=== PATIENT | male | born 1955 | race Caucasian/White ===

== ENCOUNTER → 2018-09-13 08:13 | Outpatient (CLI) | payer MEDICARE, OTHER ==
[~2018-09-13 08:13] MED LIST: LEXAPRO5 MG PO; LISINOPRIL10 MG PO
[2018-09-25 12:28] VITALS: BMI 20.8
== END | disposition home or self-care (01) ==
LOC: D.HCCARDIO 08:13
DX: R06.09 Other forms of dyspnea (principal)

== ENCOUNTER 2018-09-25 11:51 | Outpatient (CLI) | payer MEDICARE, OTHER ==
[~2018-09-25] VITALS: Ht 172.7 cm; Wt 62.3 kg
--- NOTE | ~2018-09-25 | HEMODYNAMI ---
PATIENT:PRINCE JULIAN MEDICAL RECORD: [id number] : 51 LOCATION:D.CAT ADMISSION DATE: 09/25/18 Generatedon:09/25/201815:43 Patient name: PRINCE JULIAN Patient #: [id number] SSN: : 1955 Date of study: 09/25/2018 Page: Of Hemodynamic Procedure Report Patient Data Patient Demographics Procedure consent was obtained First Name: PRINCE Gender: Male Last Name: IESHA : 1955 Patient #: [id number] Age: 63 year(s) Race: Unknown Additional ID: [id number] Contact details Address: [address] [place] [address] [address] State: [place] City: [facility] Zip code: [address] Past Medical History Allergies Allergen Reaction Date Comments Reported Other allergy 09/25/2018 NORCO, OXYCODONE Admission Admission Data Admission Date: 09/25/2018 Admission Time: 11:51 Height (in.): 68 BSA: 1.74 (m2) Height (cm.): 172.72 BMI: 20.83 (kg/m2) Weight (lbs.): 137 Weight (kg.): 62.14 Lab Results Lab Result Date: 09/25/2018 Lab Result Time: 0:00 Biochemistry Name Units Result Min Max BUN mg/dl 14 --(--*-)-- 7 18 Creatinine mg/dl 0.9 --(-*--)-- 0.6 1.3 CBC Name Units Result Min Max Hemoglobin g/dl 15.2 --(-*--)-- 13.5 17.5 Procedure Procedure Types Cath Procedure Diagnostic Procedure C [facility] w/Coronaries Procedure Description Procedure Date Procedure Date: 09/25/2018 Procedure Start Time: 15:31 Procedure End Time: 15:40 Procedure Staff Name Function Johann Crain MD Performing Physician Lesly Cotto RT Monitor Gin Arita RT Scrub Brad Sullivan RN Nurse Kwadwo Ruano RN Casing Tester Procedure Data Cath Procedure Fluoroscopy Diagnostic fluoroscopy Total fluoroscopy Time: 2.1 time: 2.1 min min Diagnostic fluoroscopy Total fluoroscopy dose: 295 dose: 295 mGy mGy Contrast Material Contrast Material Type Amount (ml) Isovue 300 27 Entry Location Entry Primary Successful Side Size Upsize Upsize Entry Closure Eubanks ccessful Closure Location (Fr) 1 (Fr) 2 (Fr) Remarks Device Remarks Radial Right 6 Fr Mechanical tr artery Short Compression Estimated blood loss: 10 ml Diagnostic catheters Device Type Used For End Catheter Placement DIAGNOSTIC Bo 110cm Procedure 5Fr catheter ([id number]) Procedure Complications No complications Procedure Medications Medication Administration Route Dosage 0.9% NaCl I.V. 100 ml/hr Oxygen etCO2 Nasal cannula 2 l/min Heparin Flush Bag added to field 2 bags (1000units/500ml NS) Lidocaine 2% added to field 20 Radial Cocktail added to field 1 syringe (Verapomil 2mg/Nitro 400mcg/Heparin 1500units) Versed I.V. 2 mg Fentanyl I.V. 100 mcg Radial Cocktail I.A. 1 syringe (Verapomil 2mg/Nitro 400mcg/Heparin 1500units) Hemodynamics Rest BSA: 1.74 (m2) HGB: 15.2 (g/dl) O2 Consumption: Estimated: 192.53 (ml/min) O2 Co nsumption indexed: Estimated:110.65 (ml/min/m) Heart Rate: 54 (bpm) Pressure Samples Time Site Value (mmHg) Purpose Heart Use Rate(bpm) 15:33 LV 68/-5,-1 Snapshot 71 15:33 LV 95/-1,4 Snapshot 68 15:34 AO 96/53(70) Pullback 59 15:34 LV 96/0,6 Pullback 59 Gradients Valve Time Site 1 Site 2 Mean SEP/DFP Peak To Heart Use (mmHg) (sec/min) Peak Rate (mmHg) (bpm) Aortic 15:34 LV AO 6 16 0 59 96/0,6 96/53(70) Calculations Valve P-P Mean Valve Index Valve Source Name Gradient Area Flow (cm2) Aortic 0 6 0 6 Snapshots Pre Cath Intra NCS Post Cath Vital Signs Time Heart Resp SPO2 etCO2 NIBP (mmHg) Rhythm Pain Sedation Rate (ipm) (%) (mmHg) Status Level (bpm) 15:21:49 51 11 100 32.1 179/88(157) NSR 0 (11) 10(A) , No pain 15:26:14 47 13 100 7.4 128/75(96) NSR 0 (11) 10(A) , No pain 15:30:23 48 12 100 10.4 122/67(86) NSR 0 (11) 10(A) , No pain 15:34:37 55 11 98 24.6 91/51(68) NSR 0 (11) 10(A) , No pain 15:38:37 58 11 98 26.1 99/57(75) NSR 0 (11) 10(A) , No pain Medications Time Medication Route Dose Verified Delivered Reason Notes Effectiveness by by 15:20:37 0.9% NaCl I.V. 100 Brad Brad Per ml/hr Laurie Sullivan physician RN RN 15:20:49 Oxygen etCO2 2 l/min Brad Brad for low 02 Nasal Lorigan Laurie sats cannula RN RN 15:21:01 Heparin Flush added 2 bags Brad Brad used for Bag to Laurie Sullivan procedure (1000units/500ml field GAMEZ RN NS) 15:21:12 Lidocaine 2% added 20ml Brad Brad for local to vial Lorigan Laurie anesthetic field GAMEZ RN 15:21:30 Radial Cocktail added 1 Brad Brad used for (Verapomil to syringe Laurie Sullivan procedure 2mg/Nitro field GAMEZ RN 400mcg/Heparin 1500units) 15:27:03 Versed I.V. 2 mg Brad Brad for sedation Laurie Sullivan RN RN 15:27:11 Fentanyl I.V. 100 mcg Brda Brad for sedation Laurie Sullivan RN RN 15:30:51 Radial Cocktail I.A. 1 Brad Johann for (Verapomil syringe Laurie Crain MD vasodilation 2mg/Nitro RN 400mcg/Heparin 1500units) Procedure Log Time Note 14:43:20 Signed procedure consent form obtained from patient. 14:43:21 Diagnostic Cath status Elective 14:43:24 Time tracking: Regular hours (M-F 7:00 - 5:00) 14:43:27 Plan of Care:Hemodynamics will remain stable., Cardiac rhythm will remain stable., Comfort level will be maintained., Respiratory function will remain adequate., Patient/ family verbilizes understanding of procedure., Procedure tolerated without complication., Recovers from procedure without complications.. 14:43:43 H&P Date Dictated: 09/04/2018 Within 30 days and on chart., H&P Addendum completed by physician on day of procedure. (MUST COMPLETE FOR ALL OUTPATIENTS). 14:43:59 Patient allergic to Other allergyNORCO, OXYCODONE 14:44:06 Patient Height : 68 inches 14:44:09 Patient Weight : 137 lbs 14:46:54 Lab Result : BUN 14 mg/dl 14:46:54 Lab Result : Hemoglobin 15.2 g/dl 14:46:54 Lab Result : Creatinine 0.9 mg/dl 15:00:49 Kwadwo Ruano RN sent for patient. Start room use. 15:08:32 Patient received from Pre/Post Procedure Room to CCL 2 Alert and oriented. Tansferred to table in Supine position. 15:08:33 Warm blankets applied, and ammon hugger turned on for patient comfort. 15:08:33 Correct patient and procedure confirmed by team. 15:08:33 ECG and BP/O2 sat monitors applied to patient. 15:20:37 0.9% NaCl 100 ml/hr I.V. was administered by rBad Sullivan RN; Per physician; 15:20:42 Vital chart was started 15:20:47 Baseline sample Acquired. 15:20:49 Oxygen 2 l/min etCO2 Nasal cannula was administered by Brad Sullivan RN; for low 02 sats; 15:20:51 Rhythm: sinus rhythm 15:20:53 Full Disclosure recording started 15:21:01 Heparin Flush Bag (1000units/500ml NS) 2 bags added to field was administered by Brad Sullivan RN; used for procedure; 15:21:02 Pre-procedure instructions explained to patient. 15:21:04 Family in waiting room. 15:21:07 Patient NPO since Midnight. 15:21:10 Is the patient allergic to Iodine/contrast media? No. 15:21:11 Was the patient premedicated? Yes 15:21:12 Lidocaine 2% 20ml vial added to field was administered by Brad Sullivan RN; for local anesthetic; 15:21:14 Is patient on blood thinner?No 15:21:15 Patient diabetic? No. 15:21:21 Snore? No 15:21:23 Sleep apnea? No 15:21:27 Airway obstruction? Yes COPD 15:21:30 Radial Cocktail (Verapomil 2mg/Nitro 400mcg/Heparin 1500units) 1 syringe added to field was administered by Brad Sullivan RN; used for procedure; 15::32 Dentures? No ? 15:21:40 IV patent on arrival in left forearm with 0.9% NaCl at O. 15:21:45 Lab results completed and on chart. 15::49 Right Radial & Right Groin area was prepped with chlora-prep and draped in sterile fashion 15::50 Alarms reviewed by R. N. 15::50 Sharps counted by scrub and verified by R.N. 15:23:36 Physician paged 15::39 Physician arrived 15::40 --------ALL STOP TIME OUT------ 15::41 Final Timeout: patient, procedure, and site verified with staff and physician. All members of the team are in agreement. 15::43 Right groin site verified by team. 15::47 Right Radial site verified by team. 15::53 Fire Safety Assessment: A--An alcohol-based skin anteseptic being used preoperatively., C--Open oxygen or nitrous oxide is being used., D--An ESU, laser, or fiber-optic light is being used. 15:27:02 Physical assessment completed. ASA score P 2 - A patient with mild systemic disease as per Johann Crain MD. 15:27:03 Versed 2 mg I.V. was administered by Brad Sullivan RN; for sedation; 15:27:06 Sedation plan: IV Moderate Sedation Medication:Versed, Fentanyl 15:27:11 Fentanyl 100 mcg I.V. was administered by Brad Sullivan RN; for sedation; 15::49 Use device set Radial Dx or PCI 15:29:51 ACIST Syringe (03953) opened to sterile field. 15:29:52 Medline Cath Pack ([id number]) opened to sterile field. 15:29:52 Bag Decanter () opened to sterile field. 15:29:53 DIAGNOSTIC WIRE .035 260cm J wire (981147) opened to sterile field. 15:29:53 ACIST Hand Control (20195) opened to sterile field. 15:29:54 ACIST Manifold (18640) opened to sterile field. 15:29:54 Tegaderm 4 x 4 (1626W) opened to sterile field. 15:29:56 MBrace Wrist Support ([id number]) opened to sterile field. 15:29:57 NEEDLE Cook 21G 4cm Radial (K93492) opened to sterile field. 15:30:00 SHEATH 6FR Slender (80-3560) opened to sterile field. 15:30:04 Procedure started. 15:30:51 Radial Cocktail (Verapomil 2mg/Nitro 400mcg/Heparin 1500units) 1 syringe I.A. was administered by Johann Crain MD; for vasodilation; 15:31:04 Local anesthetic to right radial artery with Lidocaine 2% by Johann Crain MD.INITIAL ACCESS ONLY 15:31:12 A 6 Fr Short sheath was inserted into the Right Radial artery 15:31:28 A DIAGNOSTIC Bo 110cm 5Fr catheter (968299) was advanced over the wire and used for Procedure. 15:32:47 LV angiography performed. 15:33:21 EF : 60 % 15:33:39 Zero performed for pressure channel P1 15:34:28 LCA angiography performed. 15:37:18 RCA angiography performed. 15:38:01 Catheter removed. 15:38:08 TR BAND Standard ([id number]) opened to sterile field. 15:38:26 Sheath removed intact; hemostasis achieved with Mechanical Compression to the Right Radial artery. 15:38:30 Procedure ended.(Physican Out) 15:38:43 Fluoroscopy time 02.10 minutes. 15:38:49 Flurop Dose total: 295 15:38:49 Fluoroscopy dose: 295 mGy 15:39:09 Contrast amount:Isovue 300 27ml. 15:39:11 Sharps counted by scrub and verified by R.N. 15:39:20 TR band inflated with 12cc of air. 15:39:21 Insertion/operative site no bleeding no hematoma. 15:39:30 Post right radial artery:stable 15:39:33 Post Procedure Pulses reassessed and unchanged 15:39:38 Post-procedure physical assessment completed. ASA score P 2 - A patient with mild systemic disease as per Johann Crain MD. 15:39:41 Post procedure rhythm: sinus rhythm 15:39:45 Estimated blood loss: 10 ml 15:39:55 Procedure and supply charges have been captured, reviewed, submitted and are correct. 15:40:21 Procedure Complication : No complications 15:40:34 Vital chart was stopped 15:40:35 See physician's report for complete and final results. 15:40:39 Report given to Pre/Post Procedure Room. 15:40:41 Patient transfered to Pre/Post Procedure Room with Stretcher. 15:40:43 Procedure ended. 15:40:43 Full Disclosure recording stopped 15:40:47 End room use (Document Last) Device Usage Item Name Manufacture Quantity Catalog Hospital Part Current Minimal Lot# / Number Charge Number Stock Stock Serial# Code ACIST Acist 1 24893 181530 618989 007978 20 Syringe Medical (42487) Systems Inc Medline Medline 1 [id number] 324201 74538 257141 5 Cath Pack ([id number]) Bag Microtek 1 2001S 690092 40382 472901 5 Decanter Medical Inc. (2001S) DIAGNOSTIC St Piotr 1 545631 634955 262068 220451 30 WIRE .035 260cm J wire (633685) ACIST Hand Acist 1 55219 026667 090604 179229 5 Control Medical (58738) Systems Inc ACIST Acist 1 44791 852705 537032 087169 5 Manifold Medical (60996) Systems Inc Tegaderm 4 3M 1 1626W 723911 413357 401617 5 x 4 (1626W) MBrace Advanced 1 140-0250-00 346499 86954 435104 5 Wrist Vascular Support Dynamics ([id number]) NEEDLE Airec Medical 1 I02301 374467 601275 443111 5 21G 4cm Radial (K54624) SHEATH 6FR Terumo 1 [id number] 793245 877058 816609 5 Slender (80-1060) DIAGNOSTIC Terumo 1 40-2235 928908 141553 955827 5 Bo 110cm 5Fr catheter (571822) TR BAND Terumo 1 [id number] 881717 584675 219118 40 Standard ([id number]) Signature Audit Campbell Stage Time Signature Unsigned Intra-Procedure 09/25/2018 Lesly Cotto 3:42:55 PM RT(R) Signatures Monitor : Lesly Cotto Signature : RT Date : Time : [facility] [address] [place] [address]
[2018-09-25] MEDS ORDERED: LISINOPRIL10 MG PO (12:12)
[2018-09-25] MEDS ORDERED: LEXAPRO5 MG PO (12:12)
[2018-09-25 12:28] VITALS: BP 180/74; Ht 172.7 cm; Wt 62.3 kg
[2018-09-25 12:52] LABS: CALC OSMOLALITY 271 mosm/kg (275-300); CALCIUM 8.2 mg/dL (8.5-10.1); CARBON DIOXIDE 23.9 mmol/L (21.0-32.0); CHLORIDE - SERUM 101 mmol/L (98-107); CREATININE - SERUM 0.9 mg/dL (0.6-1.3); GLUCOSE 81 mg/dL (74-106); POTASSIUM - SERUM 3.8 mmol/L (3.5-5.1); SODIUM 136 mmol/L (136-145); UREA NITROGEN 14 mg/dL (7-18); eGFR NON AFRICAN AMERICAN 90 mL/min (90-120)
[2018-09-25 13:30] LABS: BASOPHILS 0.3 % (0-2); EOSINOPHILS 2.5 % (0-7); HEMATOCRIT 43.2 % (42.0-54.0); HEMOGLOBIN 15.2 g/dL (13.5-17.5); IMMATURE GRANULOCYTES 0.3 % (0-5); LYMPHOCYTES 35.9 % (15-50); MCH 31.7 pg (26.0-34.0); MCHC 35.2 g/dL (31.0-37.0); MEAN PLATELET VOLUME 9.9 fL (7.4-10.4); PLATELET COUNT 219 10x3/uL (130-400); RDW 12.6 % (11.5-14.5); WBC 7.6 10x3/uL (4.8-10.8)
--- NOTE | 2018-09-25 16:01 | NUR ---
PT RECEIVED VIA STRETCHER FROM DIESEL SERVICE APPRENTICE FOR RECOVERY. PT SLEEPING, AROUSES TO VERBAL STIMULI. HR SINUS LETICIA RATE 49, BP 104/62, O2 SAT 95 ON 2L/NC. TR BAND TO R WRIST IN PLACE, DRESSING CDI NO BLEEDING OR SWELLING NOTED. CAP REFILL BRISK. CALL LIGHT IN REACH
--- NOTE | 2018-09-25 16:15 | NUR ---
PT SLEEPING W EYES CLOSED, TR BAND IN PLACE NO BLEEDING OR HEMATOMA NOTED. CAP REFILL BRISK. HR SINUS LETICIA RATE 456, BP 107/61. CALL LIGHT IN REACH
--- NOTE | 2018-09-25 16:45 | NUR ---
PT RESTING COMFORTABLY, DENIES PAIN OR DISCOMFORT. TR BAND AND IMMOBILIZER IN PLACE, NO BLEEDING OR HEMATOMA NOTED. DRESSING REMAINS CDI. CALL LIGHT IN REACH.
--- NOTE | 2018-09-25 17:04 | NUR ---
4CC AIR REMOVED FROM TR BAND, NO BLEEDING OR SWELLING NOTED. PT STILL DROWSY BUT RESPONDS TO VERBAL STIMULI. O2 REMOVED. PT DENIES PAIN OR NEEDS. OFFERED SANDWICH OR DRINK, REFUSES AT THIS TIME. CALL LIGHT IN REACH.
--- NOTE | 2018-09-25 17:35 | NUR ---
PT WAKING UP MORE, WATER GIVEN PER REQUEST. DENIES PAIN OR DISCOMFORT, VSS. TR BAND AND IMMOBILIZER IN PLACE NO BLEEDING OR SWELLING NOTED. 3 ADD'L CC AIR REMOVED W/O BLEEDING OR SWELLING. REFUSES ANY FOOD AT THIS TIME. CALL LIGHT IN REACH
--- NOTE | 2018-09-25 17:50 | NUR ---
IV REMOVED W CATH INTACT, MONITORS REMOVED. PT MORE AWAKE, CALLING FOR RIDE HOME.
--- NOTE | 2018-09-25 18:10 | NUR ---
DISCHARGE INSTRUCTIONS REVIEWED W PT, VERBALIZED UNDERSTANDING. PT UP TO DRESS W ASSIST OF .
--- NOTE | 2018-09-25 18:15 | NUR ---
REMAINING AIR REMOVED FROM TR BAND, NO BLEEDING OR SWELLING NOTED. 2X2 AND TEGADERM DRESSING APPLIED. IMMOBILIZER ON, INSTRUCTED PT TO KEEP ON TILL AM REMINDER TO NOT BEND OR PUT WEIGHT ON WRIST. TO BR THEN DISCHARGED TO PRIVATE VEHICLE VIA WC.
== END 2018-09-25 18:15 | disposition home or self-care (01) ==
LOC: D.CATH 11:51
PROVIDERS: Internal Medicine Cardiovascular Disease
DX: I25.119 Atherosclerotic heart disease of native coronary artery with unspecified angina pectoris (principal)

== ENCOUNTER 2018-10-02 16:17 | Inpatient (IN) | payer MEDICARE, OTHER ==
[~2018-10-02] VITALS: Ht 172.7 cm; Wt 63.1 kg
[2018-10-03 08:45] LABS: BASOPHILS 0.4 % (0-2); EOSINOPHILS 1.6 % (0-7); HEMATOCRIT 46.1 % (42.0-54.0); HEMOGLOBIN 16.1 g/dL (13.5-17.5); IMMATURE GRANULOCYTES 0.4 % (0-5); LYMPHOCYTES 30.5 % (15-50); MCH 31.8 pg (26.0-34.0); MCHC 34.9 g/dL (31.0-37.0); MCV 90.9 fL (80.0-100.0); MEAN PLATELET VOLUME 9.7 fL (7.4-10.4); MONOCYTES 11.2 % (2-11); NEUTROPHILS 55.9 % (40-80); PLATELET COUNT 219 10x3/uL (130-400); RBC 5.07 10x6/uL (4.20-6.10)
[2018-10-03 08:53] LABS: INR 0.97 (0.85-1.17); PROTIME 12.4 SECONDS (11.6-15.0)
[2018-10-03 08:54] LABS: APTT 27.6 SECONDS (22.8-39.4)
[2018-10-03 08:57] LABS: APPEARANCE CLEAR (CLEAR); BILIRUBIN NEGATIVE (NEGATIVE); COLOR YELLOW (YELLOW); GLUCOSE NEGATIVE (NEGATIVE); KETONE NEGATIVE (NEGATIVE); NITRITE NEGATIVE (NEGATIVE); PROTEIN NEGATIVE (NEGATIVE); UROBILINOGEN NORMAL (NORMAL)
[2018-10-03 09:00] LABS: BACTERIA NONE SEEN /hpf (NONE SEEN); EPITHELIAL CELLS OCC /hpf (0-5); MUCUS <1+ /lpf (NONE SEEN); RED CELLS - URINE OCC /hpf (0-5); WHITE CELLS - URINE OCC /hpf (0-5)
[2018-10-03 09:08] LABS: ALBUMIN 3.4 g/dL (3.4-5.0); ALKALINE PHOSPHATASE 161 U/L (46-116); ALT (SGPT) 21 U/L (10-68); CALC OSMOLALITY 274 mosm/kg (275-300); CALCIUM 8.8 mg/dL (8.5-10.1); CARBON DIOXIDE 27.3 mmol/L (21.0-32.0); CHLORIDE - SERUM 102 mmol/L (98-107); CHOLESTEROL, TOTAL 172 mg/dL (0-200); CREATININE - SERUM 0.8 mg/dL (0.6-1.3); GLUCOSE 95 mg/dL (74-106); PHOSPHOROUS 2.9 mg/dL (2.5-4.9); POTASSIUM - SERUM 4.4 mmol/L (3.5-5.1); SODIUM 137 mmol/L (136-145); T4 THYROXIN - FREE 1.03 ng/dL (0.76-1.46); THYROID STIMULATING HORMONE 0.91 uIU/mL (0.36-3.74); UREA NITROGEN 14 mg/dL (7-18); URIC ACID 3.1 mg/dL (2.6-7.2); eGFR NON AFRICAN AMERICAN > 90 mL/min (90-120)
[2018-10-07] VITALS (38 sets, daily range): BP systolic 93–146; BP diastolic 50–79; BMI 21.1; BMI 22.6
--- NOTE | 2018-10-07 13:10 | NUR ---
PT ARRIVED IN THE UNIT WITH THE OR TEAM. PT HOOKED TO ICU MONITORS. PT VERY SEDATED AND ON THE VENT. 8.5 ETT NOTED 22 AT THE LIP. SEE RT NOTES FOR VENT SETTINGS AND CHANGES. RIGHT IJ CVL NOTED. DRESSING C/D/I. SEE IV FLUIDS IN FLOW SHEET. MIDSTERNAL DRESSING C/D/I. SUBSTERNAL DRESSING C/D/I. 3 CT'S NOTED AND A LEFT DARRELL DRAIN. 2 CT'S Y'D INTO ONE CT IS LABLED P AND CT A IS A SINGLE CT. BOTH CT'S CONNECTED TO 20 CM OF SUCTION. NO AIR LEAK NOTED. THE LEFT DARRELL DRAIN IS COMPRESSED. DRESSING C/D/I ALL DRESSING C/D/I. TPM WIRES NOTED CONNECTED TO A TPM. AAA RATE 80 AMA 10 SENSETIVITY 0.5. PT ATRIALLY PACING. VSS AT THIS TIME. RIGHT RADIAL CURRY NOTED WITH THE WRIST PROTECTOR ON. CAP REFILL <3 SECONDS. IV NOTED TO LEFT AC. FC NOTED WITH CLEAR, YELLOW URINE. RLE HARVEST SITE NOTED. DRESSING/KOBAN NOTED FROM ANKLE TO THIGH C/D/I. BILATEARL DP AND PT PULSES PALPABLE. WILL TITRATE CHARLENE FOR BP PER ORDERS.
--- NOTE | 2018-10-07 13:20 | NUR ---
CHARLENE TURNED OFF DUE TO BP RISING.
--- NOTE | 2018-10-07 13:40 | NUR ---
DR PRINGLE PAGED REGARDING HYPERTENSION. HE STATED TO TURN OFF PACEMAKER AND START NITRO IF NEEDED. PACEMAKER TURNED OFF. PT IN NSR RATE 64. BP 115/64. WILL MONITOR.
--- NOTE | 2018-10-07 14:00 | NUR ---
PT BECOMING HYPOTENSIVE AND BRADYCARDIC. PACEMAKER TURNED BACK ON AT THE SAME SETTING. PT BP STABLELIZED RATE AT 80. DR PRINGLE NOTIFIED. NO N.O AT THIS TIME.
--- NOTE | 2018-10-07 14:30 | NUR ---
DR DOE VOGELD AND MADE AWARE OF CONSULT.
--- NOTE | 2018-10-07 15:15 | NUR ---
DR AZAR AT THE PTS BEDSIDE.
--- NOTE | 2018-10-07 15:26 | NUR ---
PT AWAKE BUT REMAINS DROWSEY. PT ABLE TO FOLLOW COMMANDS. VSS AT THIS TIME. CONT TO TITRATE CHARLENE FOR BP EFFECT. WILL CONT POC.
--- NOTE | 2018-10-07 16:50 | NUR ---
RT AT THE PT'S BEDSIDE DOING NIFF AND VC TEST. SEE RT NOTES. PT HAS BEEN ON SPONT. MODE ON THE VENT DOING WELL. PT AWAKE AND ALERT AND FOLLOWING COMMANDS. ABLE TO DO SIMPLE MATH. RT COLLECTING ABG'S WILL NOTIFY DR PRINGLE OF THE RESULTS.
--- NOTE | 2018-10-07 16:59 | NUR ---
DR PRINGLE NOTIFIED ABOUT THE ABG RESULTS AND NIFF AND VC. UPDATED HIM ON PTS OUTPUTS AND IV GTTS. DR PRINGLE OK TO EXTUBATE.
--- NOTE | 2018-10-07 17:05 | NUR ---
RT EXTUBATED THE PT PER DR PRINGLE VERBAL ORDERS. O2 PLACED ON 4L VIA NC. PT NOTED TO HAVE AN EXTREAMLY WEAK COUGH. A PILLOW WAS PROVIDED FOR THE PT. PT INSTRUCTED TO SPLINT HIS CHEST AND DOMOSTRATED HOW. COUGH REMAINS WEAK. PT GIVEN AN IS AND INSTRUCTED TO USE. PT ONLY ABLE TO PULL ABOUT 500 ON HIS IS. PT INSTRUCTED TO USE 10X'S/H. VSS AT THIS TIME. CALL LIGHT IN REACH. WILL CONT POC.
--- NOTE | 2018-10-07 18:49 | NUR ---
DR PRINGLE CALLED AND UPDATED HIM ON THE PTS CONDITION INCLUDING THE PACEMAKER, VITAL SIGNS AND IV MEDICATION. NO NEW ORDERS AT THIS TIME.
--- NOTE | 2018-10-07 19:20 | NUR ---
REC'D TO CARE, SUPERVISOR OVENS PER FLOWSHEET. PT AWAKE, ORIENTED, VSS. S/P CABG. IVF INFUSING TO R IJ CVL, DSG C/D/I - SEE FLOWSHEET. INCISIONS/DRAINS PER FLOWSHEET. CRITICORE MITCHELL PATENT AND DRAINING CLEAR, YELLOW URINE. R RADIAL A-LINE, FLUSHED AND ZEROED WITH GOOD WAVE FORM NOTED - WILL TITRATE CHARLENE GTT PER MD ORDERS. CM - PACED AT 80, MEDIASTINAL TPM WITH WIRES SECURED. PT DENIES NEEDS. ALARMS ON.
--- NOTE | 2018-10-07 20:33 | NUR ---
DR. PRINGLE UPDATED ON PT STATUS, CHARLENE GTT UNCHANGED. CM - PACED AT 80. NEW ORDERS REC'D.
--- NOTE | 2018-10-07 21:59 | NUR ---
PT UP IN BED, I.S. 750-1000. REPOSITIONED WITH PILLOWS, HEELS BRIDGED. C/O PAIN AFTER - ADMIN PRN MORPHINE - SEE EMAR.
--- NOTE | 2018-10-07 22:16 | NUR ---
REPORTS ADEQUATE PAIN RELIEF. ALARMS ON AND C/L IN REACH.
--- NOTE | 2018-10-07 23:04 | NUR ---
REASSESSMENT PER FLOWSHEET. NO ACUTE CHANGES. PT PULLING 750-1000 ON I.S. REPORTS INCISIONAL PAIN "REALLY JUST WHEN IM COUGHING". VSS, WEANING CHARLENE GTT OFF. TAKING WATER WITH NO C/O NAUSEA. VSS. C/L IN REACH.
[2018-10-08] VITALS (45 sets, daily range): BP systolic 94–130; BP diastolic 48–68; BMI 22.4
--- NOTE | 2018-10-08 01:05 | NUR ---
REPOSITIONED UP IN BED, COOPERATIVE, GIVEN FRESH WATER. I.S. 750, SPLINTING CHEST WITH PILLOW.
--- NOTE | 2018-10-08 03:00 | NUR ---
REASSESSMENT PER FLOWSHEET, NO ACUTE CHANGES. GOOD EFFORT ON I.S. COOPERATIVE. VSS.
--- NOTE | 2018-10-08 03:18 | NUR ---
DANGLED AT BS X 10MIN, GOOD COUGH, THEN BACK TO BED. ADMIN PRN MORPHINE PER REQUEST. VSS. WILL CONT CLOSE MONITORING.
[2018-10-08 06:01] LABS: HEMOGLOBIN 12.1 g/dL (13.5-17.5); MCH 31.7 pg (26.0-34.0); MCHC 34.6 g/dL (31.0-37.0); MCV 91.6 fL (80.0-100.0); MEAN PLATELET VOLUME 9.5 fL (7.4-10.4); RBC 3.82 10x6/uL (4.20-6.10); RDW 13.2 % (11.5-14.5); WBC 13.7 10x3/uL (4.8-10.8)
[2018-10-08 06:20] LABS: ALBUMIN 2.5 g/dL (3.4-5.0); ANION GAP 13.6 mmol/L (8-16); BILIRUBIN - TOTAL 0.61 mg/dL (0.2-1.3); CARBON DIOXIDE 23.7 mmol/L (21.0-32.0); CREATININE - SERUM 1.1 mg/dL (0.6-1.3); POTASSIUM - SERUM 4.3 mmol/L (3.5-5.1); PROTEIN - SERUM 4.7 g/dL (6.4-8.2)
--- NOTE | 2018-10-08 06:22 | NUR ---
UP IN CHAIR WITH MINIMAL ASSIST REQUIRED. ALARMS ON AND C/L IN REACH.
--- NOTE | 2018-10-08 07:00 | NUR ---
REPORT RECIEVED FROM THE OFF GOING RN. SEE ASSESSMENT IN THE PTS FLOW SHEET. PT SITTING UPWRIGHT IN THE BEDSIDE CHAIR. NO S/SX OF DISTRESS/DISCOMFORT NOTED. BREATHING SHALLOW BUT UNLABORED. ATRIALLY PACING AT 79-80 ON THE MONITOR. RIGHT IJ CVL NOTED C/D/I. PT ON 2L VIA NC. MIDSTERNAL DRESSING C/D/I. SUBSTERNAL DRESSING C/D/I WITH CTX3 AND A LEFT DARRELL COMPRESSED. [address] A AND CT IS A SINGLE TUBE BOTH CONNECTED TO 20 CM OF SUCTION. SEROUSANGENIOUS DRAINAGE NOTED. TPM WIRES CONNECTED TO THE PACEMAKER. AAI 7AMA SENSITIVITY 0.5. FC NOTED WITH CLEAR, YELLOW URINE. RLE DRESSIN/KOBAN FROM ANKLE TO THIGH NOTED. DENIES PAIN AT THIS TIME. PT INSTRUCTED TO USE HIS IS 10X'S/H. PT PULLS ABOUT 500-750 AND WILL OCCASIONALLY HIT 1000. INSTRUCTED TO SPLINT WITH HIS PILLOW WHENEVER COUGHING. CALL LIGHT IN REACH. WILL CONT POC.
--- NOTE | 2018-10-08 08:30 | NUR ---
CLEAR LIQUID DIET PROVIDED FOR THE PT. NO DYSHAGIA NOTED. NO COMPLAINTS AT THIS TIME.
--- NOTE | 2018-10-08 09:26 | NUR ---
DR PRINGLE AT THE PTS BEDSIDE. TPM TURNED OFF. NSR AT 72. BP STABLE. CT'S LABLED A AND P PULLED OUT PER DR PRINGLE. LEFT DARRELL DRAIN REMAINING. TPM WIRES COILED AND SUBSTERNAL DRESSING CHANGED PER ORDERS. PT TOLERATED WELL.
--- NOTE | 2018-10-08 10:30 | NUR ---
LEFT AC IV DC'D WITH THE CATHETER TIP INTACT. DRESSING APPLIED.
--- NOTE | 2018-10-08 10:57 | NUR ---
10 ML OF SALINE REMOVED FROM FC. IT WAS DC PER ALONSO PRINGLE. CURRY DC PER DR PRINGLE. CATHETER TIP INTACT. PT RECEIVED A FULL BED BATH. GOWN CHANGED. PT ASSISTED OOB AND INTO HIS BEDSIDE CHAIR. PT TOELRATED WELL. PO FLUIDS AT THE PTS BEDSIDE. PT USING IS PULLING ABOUT 500-750. CALL LIGTH IN REACH. WILL CONT POC.
--- NOTE | 2018-10-08 12:55 | MORECARE ---
CASE MANAGEMENT DISCHARGE SUMMARY PATIENT: PRINCE JULIAN MELVI UNIT: [id number] ADM DATE: 10/07/18 AGE: 63 : 53 SEX: M ROOM/BED: [facility] AUTHOR: LEANDRO SAMS PHYSICIAN: REFERRING PHYSICIAN: JODEE PRINGLE MD DATE OF SERVICE: 10/08/18 Discharge Plan Patient Name: PRINCE JULIAN [facility] [facility] 1955 Planned Disposition: Home Anticipated Discharge Date: Discharge Date: Expected LOS: Initial Reviewer: [email or web address] Initial Review Date: 10/07/2018 Generated: 10/08/18 1:55 pm Patient Name: PRINCE JULIAN Page [phone] at 1255 All edits/amendments must be made on the electronic document DICTATION DATE: 10/08/18 1254 ENGINE WATCHMAN: GURVINDER 10/08/18 1254 RPT#: [id number] DC DATE: STATUS: ADM IN [facility] [address] [place] [address] END OF REPORT
--- NOTE | 2018-10-08 13:03 | MORECARE ---
CASE MANAGEMENT DISCHARGE SUMMARY PATIENT: PRINCE JULIAN UNIT: [id number] ADM DATE: 10/07/18 AGE: 63 : 53 SEX: M ROOM/BED: [facility] AUTHOR: LATRELL,DOC PHYSICIAN: REFERRING PHYSICIAN: JODEE PRINGLE MD DATE OF SERVICE: 10/08/18 Discharge Plan Patient Name: PRINCE JULIAN Facility: [facility]:[place] : 1955 Planned Disposition: Home Anticipated Discharge Date: Discharge Date: Expected LOS: Initial Reviewer: [email or web address] Initial Review Date: 10/07/2018 Generated: 10/08/18 2:03 pm Comments DCP- Discharge Planning Updated by [email or web address]: Gely Marley on 10/08/18 12:[address] Patient Name: PRINCE JULIAN Admission Status: Elective Accout number: [id number] Admission Date: 10-07-2018 : 1955 Admission Diagnosis: Attending: JODEE PRINGLE Current LOS: 1 Anticipated DC Date: Planned Disposition: Home Primary Insurance: MEDICARE A & B Discharge Planning Comments: CM met with patient and spouse at bedside after obtaining verbal consent. Patient states he plans on returning home after discharge with his . Patient states he will have family transport him home via private vehicle. Patient denies any discharge needs at this time. CM will continue to follow and assist as needed for discharge planning / needs. Client Success Director: Gely Marley DCPIA - Discharge Planning Initial Assessment Updated by [id number]: Gely Marley on 10/08/18 12:58 pm * Is the patient Alert and Oriented? Yes * How many steps to enter\exit or inside your home? * PCP [facility] * [place] [facility] [place] Preadmission Environment Home with Family * ADLs Independent * Equipment None * List name and contact numbers for known caregivers / representatives who currently or will assist patient after discharge: SHAW JULIAN - - [phone] * Verbal permission to speak to the caregivers and representatives has been obtained from the patient. Yes * Community resources currently utilized None * Additional services required to return to the preadmission environment? No * Can the patient safely return to the preadmission environment? Yes * Has this patient been hospitalized within the prior 30 days at any hospital? No Last DP export: 10/08/18 11:55 am Patient Name: PRINCE JULIAN Page [phone] at 1303 All edits/amendments must be made on the electronic document DICTATION DATE: 10/08/18 1303 HAND ROLLER ENGRAVER: GURVINDER 10/08/18 1303 RPT#: [id number] DC DATE: STATUS: ADM IN [facility] [address] [place] [address] END OF REPORT
--- NOTE | 2018-10-08 15:42 | NUR ---
PT DENIES THE URGE TO URINATE. I ASKED IF THE PT COULD TRY ANYWAYS AND HE STATED THAT HE WILL. HE ATTEMPTED TO URINATE IN THE URINAL WITH NO SUCCESS BUT THE PT DENIES THE URGE TO VOID. ENCOURAGE PO INTAKE.
--- NOTE | 2018-10-08 16:39 | NUR ---
DINNER TRAY PROVIDED FOR THE PT. NO NEEDS AT THIS TIME. DENIES PAIN. CALL LIGHT IN REACH. WILL CONT POC.
--- NOTE | 2018-10-08 19:23 | NUR ---
REC'D TO CARE, DIRECTOR OF SOCIAL MEDIA MARKETING PER FLOWSHEET. PT UP IN CHAIR. VSS. PT HAS VOIDED 100ML CLEAR, NARA URNIE IN URINAL. INCISION/SKIN ASSESSMENT PER FLOWSHEET. CM - NSR. R IJ CVL, DSG INTACT, SL'D. PT DENIES NEEDS AT THIS TIME. C/L IN REACH.
--- NOTE | 2018-10-08 20:03 | NUR ---
PT BACK TO BED WITH MINIMAL ASSIST. C/O BREAKTHROUGH PAIN - PRN DILAUDID GIVEN - SEE EMAR
--- NOTE | 2018-10-08 21:19 | NUR ---
ADMIN PO MEDS PER MD ORDERS. AT BS. UPDATE GIVEN AND QUESTIONS ANSWERED.
--- NOTE | 2018-10-08 23:12 | NUR ---
REASSESSMENT PER FLOWSHEET, NO ACUTE CHANGES. USES C/L FOR NEEDS. GIVEN BROTH PER REQUEST. ALARMS ON.
[2018-10-09] VITALS (25 sets, daily range): BP systolic 95–132; BP diastolic 48–69
--- NOTE | 2018-10-09 01:05 | NUR ---
RT AT BS FOR RESP TX. I.S. 750-1000. PT USES ROMA FOR PC. C/L IN REACH.
--- NOTE | 2018-10-09 01:05 | NUR ---
PT RESTING WITH EYES CLOSED, VSS. ALARMS ON AND C/L IN REACH.
--- NOTE | 2018-10-09 03:00 | NUR ---
REASSESSMENT PER FLOWSHEET, NO ACUTE CHANGES. STERILE DSG CHANGE TO R IJ CVL PER PROTOCOL, NO REDNESS OR SWELLING AT SITE. VSS. PT DENIES NEEDS. C/L IN REACH. ALARMS ON. FRESH WATER AT BS.
[2018-10-09 06:20] LABS: HEMATOCRIT 32.7 % (42.0-54.0); MCH 30.9 pg (26.0-34.0); MCHC 33.6 g/dL (31.0-37.0); MCV 91.9 fL (80.0-100.0); MEAN PLATELET VOLUME 10.1 fL (7.4-10.4); RBC 3.56 10x6/uL (4.20-6.10); RDW 13.3 % (11.5-14.5); WBC 11.8 10x3/uL (4.8-10.8)
[2018-10-09 06:35] LABS: ALBUMIN 2.2 g/dL (3.4-5.0); ALKALINE PHOSPHATASE 95 U/L (46-116); CALC OSMOLALITY 273 mosm/kg (275-300); CALCIUM 7.4 mg/dL (8.5-10.1); CARBON DIOXIDE 25.9 mmol/L (21.0-32.0); CHLORIDE - SERUM 103 mmol/L (98-107); GLUCOSE 112 mg/dL (74-106); PROTEIN - SERUM 4.8 g/dL (6.4-8.2); SODIUM 136 mmol/L (136-145); UREA NITROGEN 14 mg/dL (7-18)
[2018-10-09 06:38] LABS: ALT (SGPT) 22 U/L (10-68); CREATININE - SERUM 0.8 mg/dL (0.6-1.3); eGFR NON AFRICAN AMERICAN > 90 mL/min (90-120)
--- NOTE | 2018-10-09 07:00 | NUR ---
REPORT RECEVIED FROM THE OFF GOING RN. SEE ASSESSMENT IN THE PTS FLOW SHEET. PT ASSISTED OOB AND INTO HIS BEDSIDE CHAIR VIA THE OVER NIGHT NURSE. NORMAL STEADY GAIT NOTED. PT TOLERATED WELL. NSR ON THE MONITOR. VSS. PT ON 2L VIA NC. RIGHT IJ CVL NOTED. DRESSING C/D/I. MIDSTERNAL DRESSING C/D/I. SUBSTERNAL DRESSING C/D/I. LEFT DARRELL DRAIN NOTED. COMPRESSED WITH SCANT AMOUNT OF SEROUSANGENIOUS DRAINAGE NOTED. RLE HARVEST SITE NOTED KAYY. WELL APPROXIMATED. DENIES PAIN. CALL LIGHT IN REACH. WILL CONT POC.
--- NOTE | 2018-10-09 07:30 | NUR ---
PT INSTRUCTED TO USE HIS IS 10X'S/H. PT PULLS ABOUT 1732-2855. INSTRUCTED TO SPLINT CHEST WITH HER PILLOW. PRODUCTIVE COUGH NOTED. CLEAR THICK SPUTUM NOTED. WILL CONT POC.
--- NOTE | 2018-10-09 08:30 | NUR ---
MEAL TRAY PROVIDED FOR THE PT. NO N/V OR DYSPAGIA NOTED. PT TOLEARTED WELL. WILL CONT POC.
--- NOTE | 2018-10-09 08:51 | NUR ---
HYPOACTIVE X4. PT DENIES FLATULACE. PRN REGLAN GIVEN. SEE MAR.
--- NOTE | 2018-10-09 10:52 | NUR ---
SUBSTERNAL DRESSING CHANGED. TPM WIRES X2 NOTED. LEFT DARRELL DRAIN SITE SHOWS NO S/SX OF INFECTION NOTED. OLD CT SITES X3 NOTED. NO S/SX OF INFECTION. SCANT AMOUNT OF SEROUS DRAINAGE NOTED. BETADINE AND BETADINE OINTMENT APPLIED PER ORDERS. DRESSING APPLIED C/D/I. WILL CONT POC.
--- NOTE | 2018-10-09 11:07 | NUR ---
PHYSCIAL THERAPY WITH THE PT. PT AMBULATED ABOUT 100 FEET. C/O SLIGHT SOB. PT BACK IN HIS BEDSIDE CHAIR. VSS WILL CONT POC.
--- NOTE | 2018-10-09 11:22 | OP ---
PATIENT NAME: PRINCE JULIAN MEDICAL RECORD: [id number] :51 LOCATION:D.CVI D.CV04 ADMISSION DATE:10/07/18 SURGEON: CAIO PRINGLE MD DATE OF OPERATION: 10/07/2018 SURGEON: Caio Pringle MD MANAGEMENT TECHNICIAN: AKUA Hamm MD and Zander Baldwin. OPERATION PERFORMED: 1. Coronary artery bypass graft times 4 (left internal mammary artery to LAD, reverse saphenous vein graft from aorta to obtuse marginal, aorta to posterior descending artery and from side of that vein graft to the posterolateral branch of the right coronary artery distally). 2. Endoscopic saphenous vein harvest. PREOPERATIVE DIAGNOSES: Coronary artery disease with unstable angina. POSTOPERATIVE DIAGNOSES: Coronary artery disease with unstable angina. ANESTHESIA: General endotracheal anesthesia. SPECIMENS: None. ESTIMATED BLOOD LOSS: Cell Saver. CONDITION: Stable. DISPOSITION: CV ICU. OPERATIVE FINDINGS: 1. Transesophageal echocardiography confirmed good contractility. 2. Good quality greater saphenous vein harvested from the right thigh endoscopically a little bit smaller below the knee and this portion was used for the second posterolateral graft as it was a good match for the smaller vessel and rather than anastomosed the small vein directly to the aorta it was anastomosed to the proximal portion of the graft to the PDA. 3. Good quality left internal mammary artery. The LAD had severe disease at the diagonal site, but was a 1.5-mm vessel with good flow after anastomosis. 4. Obtuse marginal 2.0-mm with severe disease. 5. The posterior descending artery had mid vessel stenosis and then bifurcated into 2 small vessels that were not amenable for good bypass. Therefore, the anastomosis was made prior to the mid vessel, which was a 2.0-mm vessel. 6. Posterolateral branch #2 was larger of the two posterolateral, 1.5 mm. 7. 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 OPERATIVE INDICATION: Coronary artery disease and unstable angina. DESCRIPTION OF PROCEDURE: The patient was brought to the operating suite. General anesthesia was obtained, the patient was prepped and draped. Greater saphenous vein harvested in the right lower extremity utilizing endoscopic technique. Side branches divided with electrocautery. Vessels were ligated proximally and distally and removed. The side branches were tied or clipped. This portion of the case was performed with assistance surgeon, Dr. Hamm. He OPERATIVE REPORT [id number] PRINCE JULIAN harvested the vein, oversewed the side branches or tied them and ensured hemostasis. The use of an human resources office assistant surgeon saved approximately 30-45 minutes for the case. Median sternotomy incision was made. Subcutaneous tissue was divided with electrocautery. Sternum was divided with a saw. Left hemisternum was elevated. The left pleural cavity was entered. The left lung was significantly hyperexpanded. Left internal mammary artery and vein was taken down as a pedicle graft. Sternal retractor was placed. Pericardium was opened. Heparin was given. Aorta was cannulated. Dual stage venous cannula was inserted. The internal mammary was clipped distally and made ready for anastomosis. Activated clotting time was appropriately elevated. The patient was placed on cardiopulmonary bypass. Sites for distal anastomoses were selected. Antegrade cardioplegia needle was inserted. Crossclamp was placed. The patient's temperature was allowed to drift downwardly. Cardioplegia was given antegrade. This was repeated at 15-minute intervals including down the completed vein grafts. Distal anastomoses was performed in standard technique. Proximal anastomosis with single cross-clamp technique. The [id number] anastomosis was then performed after the cross-clamp was removed. The patient was fully rewarmed, weaned from cardiopulmonary bypass and was stable. The patient was paced atrial ventricularly with temporary wires. Drain was placed in the mediastinum. The patient was decannulated and cannula sites were oversewn. Protamine was given. Hemostasis was ensured. Pericardial fat was loosely reapproximated. Left chest was evacuated and irrigated. The internal mammary harvest site was hemostatic. Sternum was closed with wires. Fascia was closed. Subcutaneous tissue was closed. Skin was closed. Dermabond was placed. The needle and sponge counts were reported as correct and the patient was taken to ICU in stable condition. TRANSINT:[id number] Voice Confirmation ID: [id number] DOCUMENT ID: [id number] CAIO PRINGLE MD at 1122 CC: VLAD MOHR M.D. [id number] DICTATION DATE: 10/08/18901 SPECIAL SHOPPER: 10/08/18 1123 ADM IN [place] [id number] [place] [address]
--- NOTE | 2018-10-09 16:30 | NUR ---
DR PRINGLE'S NURSES, JOSE MERCADO RN, CALLED AND STATED TO PULL OUT THE PTS DARRELL DRAIN BUT TO LEAVE IN THE TPM WIRES. LEFT DARRELL DRAIN REMOVED PER DR PRINGLE AND SUBSTERNAL DRESSING CHANGED. NO S/SX OF INFECTION NOTED. CALL LIGHT IN REACH. WILL CONT POC.
--- NOTE | 2018-10-09 17:51 | NUR ---
DINNER TRAY PROVIDED FOR THE PT. VSS. DRESSINGS C/D/I. DENIES PAIN. CALL LIGHT IN REACH. WILL CONT POC.
--- NOTE | 2018-10-09 19:25 | NUR ---
Received patient resting in bed with eyes open, assessment completed per flowsheet. Patient AO x4, answers appropriately/follows instructions. S1/S2 noted NSR on telemetry with HR 74, rythmic and regular. Breathing is even/unlabored on 2L via NC with O2 sat 94%, lung sounds clear bilateral upper and mid with diminished lower. Midsternal incision dressing CDI, Substernal TPM wires coiled with dressing CDI. Abdomen is round/soft with bowel sounds active x4, non-tender. All pulses palpable wtih cap refill < 3 sec, skin warm/dry. Repositioned for comfort, denies pain or other needs at this time. See flowsheet for details, all VSS and will continue to monitor.
--- NOTE | 2018-10-09 21:00 | NUR ---
HS meds given without difficulty, patient sitting in bed watching TV. No visitors at this time, patient denies pain or other needs and will continue to monitor.
--- NOTE | 2018-10-09 23:20 | NUR ---
Reassessment completed per flowsheet, no changes from previous assessment. Midsternal incision dressing CDI, substernal TPM wires coiled with dressing CDI. R leg harvest site open to air, well approximated. All pulses palpable with cap refill < 3 sec, skin warm/dry. Denies pain or other needs at this time, see [email or web address] for details. All VSS and will continue to monitor.
[2018-10-10] VITALS (24 sets, daily range): BP systolic 91–137; BP diastolic 51–87; Ht 172.7 cm; Wt 63.1 kg
--- NOTE | 2018-10-10 01:00 | NUR ---
Patient sleeping in bed with eyes closed, no s/s of distress at this time. Repositioned for comfort, no further needs and will continue to monitor.
--- NOTE | 2018-10-10 03:09 | NUR ---
Reassessment completed per flowsheet, no changes from previous assessment. S1/S2 noted NSR on telemetry, rythmic and regular. Midsternal incision dressing CDI, substernal TPM wires coiled with dressing CDI. All pulses palpable with cap refill < 3 sec, skin warm/dry. Denies pain or other needs at this time, see flowsheet for details. All VSS and will continue to monitor.
--- NOTE | 2018-10-10 05:00 | NUR ---
Radiology at bedside for xray, tolerated well. Substernal dressing changed, TPM wires coiled/secure. Denies pain or other needs at this time, all VSS and will continue to monitor.
[2018-10-10 06:16] LABS: HEMATOCRIT 32.1 % (42.0-54.0); HEMOGLOBIN 10.7 g/dL (13.5-17.5); MCH 30.4 pg (26.0-34.0); MCHC 33.3 g/dL (31.0-37.0); MCV 91.2 fL (80.0-100.0); RBC 3.52 10x6/uL (4.20-6.10); RDW 13.2 % (11.5-14.5); WBC 10.1 10x3/uL (4.8-10.8)
[2018-10-10 06:37] LABS: ALBUMIN 2.3 g/dL (3.4-5.0); ALKALINE PHOSPHATASE 97 U/L (46-116); ALT (SGPT) 28 U/L (10-68); BILIRUBIN - TOTAL 0.65 mg/dL (0.2-1.3); CALC OSMOLALITY 276 mosm/kg (275-300); CALCIUM 7.6 mg/dL (8.5-10.1); CARBON DIOXIDE 24.1 mmol/L (21.0-32.0); CHLORIDE - SERUM 105 mmol/L (98-107); CREATININE - SERUM 0.9 mg/dL (0.6-1.3); GLUCOSE 98 mg/dL (74-106); POTASSIUM - SERUM 4.2 mmol/L (3.5-5.1); PROTEIN - SERUM 5.1 g/dL (6.4-8.2); SODIUM 138 mmol/L (136-145); UREA NITROGEN 16 mg/dL (7-18); eGFR NON AFRICAN AMERICAN 90 mL/min (90-120)
--- NOTE | 2018-10-10 11:54 | TEE ---
PATIENT:PRINCE JULIAN MEDICAL RECORD: [id number] LOCATION:[place] [address] AGE OF PATIENT: 63 ADMISSION DATE: 10/07/18 SEX: M REFERRING PHYSICIAN: INTERPRETING PHYSICIAN: STEVAN QUINONES MD TRANSESOPHAGEAL ECHOCARDIOGRAM Date: 10/07/18 ANGIE CHARGE Y INDICATIONS: CABG PREMEDICATIONS: PATIENT'S RESPONSE PROCEDURE DOPPLER MEASUREMENTS: LVIT LA PA RA LVOT RVOT Asc. Ao AV Gradient Peak AV Mean AV Area MV Gradient Peak MV Mean MV Area INTERPRETATION: LVd: 3.2 cm LVs: 2.1 cm Doppler: 2-D: COLOR FLOW DOPPLER NORMAL SALINE STUDY: MISCELLANOUS: DIAGNOSIS: PLAN: County Commissioner:Reyes Crain Baby Stroller Rental Clerk: Giacomo VILLELA COMMENTS: DATE OF SERVICE: 10/07/2018 PROCEDURE: Transesophageal echo evaluation of valvular structures during bypass surgery. FINDINGS: 1. Left ventricular chamber size is within normal limits. Left ventricular systolic function is normal. Overall ejection fraction estimated at 55% to 60%. 2. Left atrium, right atrium, and right ventricular chamber sizes are within TRANSESOPHAGEAL ECHOCARDIOGRAM REPORT [id number] PRINCE JULIAN normal limits. 3. Valvular structures have normal structure and motion. 4. Doppler interrogation reveals no significant valvular insufficiency or stenosis. 5. No evidence of pericardial effusion or left ventricular thrombus. TRANSINT:[id number] Voice Confirmation ID: [id number] DOCUMENT ID: [id number] at 1154 CC: [id number] DICTATION DATE: 10/07/18 1732 PATIENT ACCESS DIRECTOR: 10/08/18 0037 ADM IN [place] [address] [place] [address]
--- NOTE | 2018-10-10 14:42 | NUR ---
0700 PT RECIEVED UP IN CHAIR ALERT AN DORIENTED O2 2L NC R IJ CVL DRESSING CDI SALINE LOCKED, MIDSTERNAL AND SUBSTERNAL DRESSINGS CDI WITH SUBSTERNAL DRESSING CHANGED THIS AM BY PREVIOUS SHIFT, TPM WIRES COILED TO CHEST, CONTINENT, RLE HARVEST SITES WELL APPROXIMATED 0900 TOOK AM MEDS AND ATE 50% BREAKFAST 1100 AMBULATED WITH THERAPY 1300 ATE 25% LUNCH 1430 AMBULATED WITH THERAPY, ASSISTED WITH BATH AND LINEN CHANGE
--- NOTE | 2018-10-10 17:42 | NUR ---
1700 ATE 25% DINNER TRAY, STATED HE WAS NOT HUNGRY, DENIES PAIN AND ALL NEEDS, CONTINUES TO USE IS EVERY 30MIN-HOURLY, 0092-1258 X10, O2 1L NC, UNABLE TO WEAN AT THIS TIME, CALL LIGHT WITHIN REACH, LINENS CHANGED,
--- NOTE | 2018-10-10 19:41 | NUR ---
REPORT RECEIVED, SHIFT ASSESSMENT COMPLETED PER FLOW SHEET. SITTING UP IN CHAIR. AAOX4. PPP. VSS. DENIES NEEDS. CALL LIGHT WITHIN REACH. SEE FLOW SHEET FOR COMPLETE ASSESSMENT. WILL CONTINUE TO MONITOR.
--- NOTE | 2018-10-10 21:32 | NUR ---
SCHEDULED MEDS GIVEN. WATER PROVIDED. DENIES NEEDS. CALL LIGHT WITHIN REACH.
--- NOTE | 2018-10-10 23:27 | NUR ---
REASSESSMENT COMPLETED PER FLOW SHEET, SEE FOR DETAILS. NO ACUTE DISTRESS NOTED. WILL CONTINUE TO MONITOR.
[2018-10-11] VITALS (23 sets, daily range): BP systolic 91–128; BP diastolic 46–83
--- NOTE | 2018-10-11 01:02 | NUR ---
CALL LIGHT ANSWERED, ASSISSTED OOB TO USE BATHROOM. GAIT STEADY. SOFT BROWN BM NOTED. ASSISSTED BACK IN BED. DENIES OTHER NEEDS. CALL LIGHT WITHIN REACH. WILL CONTINUE TO MONITOR.
--- NOTE | 2018-10-11 03:17 | NUR ---
REASSESSMENT COMPLETED PER FLOW SHEET, SEE FOR DETAILS. NO ACUTE DISTRESS NOTED. WILL CONTINUE TO MONITOR.
--- NOTE | 2018-10-11 05:00 | NUR ---
ASSISSTED WITH SOAP AND WATER BED BATH. SUBSTERNAL DRESSING CHANGED.
--- NOTE | 2018-10-11 05:40 | NUR ---
PATIENT IN A-FIB, CALLED AND SPOKE TO DR. PRINGLE. NEW ORDERS RECEIVED, SEE ORDERS FOR DETAILS.
[2018-10-11 06:08] LABS: HEMATOCRIT 31.7 % (42.0-54.0); HEMOGLOBIN 10.7 g/dL (13.5-17.5); MCH 30.6 pg (26.0-34.0); MCHC 33.8 g/dL (31.0-37.0); MCV 90.6 fL (80.0-100.0); MEAN PLATELET VOLUME 10.2 fL (7.4-10.4); RBC 3.5 10x6/uL (4.20-6.10); RDW 13.3 % (11.5-14.5); WBC 8.9 10x3/uL (4.8-10.8)
[2018-10-11 06:29] LABS: ALBUMIN 2.3 g/dL (3.4-5.0); ALKALINE PHOSPHATASE 113 U/L (46-116); ALT (SGPT) 27 U/L (10-68); BILIRUBIN - TOTAL 0.68 mg/dL (0.2-1.3); CALCIUM 7.7 mg/dL (8.5-10.1); CARBON DIOXIDE 21.6 mmol/L (21.0-32.0); CHLORIDE - SERUM 107 mmol/L (98-107); CREATININE - SERUM 0.9 mg/dL (0.6-1.3); GLUCOSE 98 mg/dL (74-106); PROTEIN - SERUM 5.5 g/dL (6.4-8.2); SODIUM 141 mmol/L (136-145); eGFR NON AFRICAN AMERICAN 90 mL/min (90-120)
[2018-10-11 06:30] LABS: CALC OSMOLALITY 283 mosm/kg (275-300); POTASSIUM - SERUM 3.5 mmol/L (3.5-5.1); UREA NITROGEN 21 mg/dL (7-18)
--- NOTE | 2018-10-11 07:00 | NUR ---
REPORT RECEIVED. PT ALERT AND ORIENTED. SITTING UP IN CHAIR. WAS IN AFIB DURING NIGHT. CONVERTED BACK TO SINUS. DR PRINGLE AWARE. PT ON O2 VIA NC 2L. ASSESSMENT PERFORMED. VSS. DRESSINGS TO MIDSTERNUM AND SUBSTERNUM C/D/I. PT HAS NO COMPLAINTS OR NEEDS AT THIS TIME. WILL CONTINUE TO MONITOR.
--- NOTE | 2018-10-11 07:01 | NUR ---
CALLED AND SPOKE TO DR. PRINGLE, UPDATE GIVEN ON PATIENT STATUS. NEW ORDERS RECEIVED TO GIVE 20 MEQ KCL IV OVER 1HR.
--- NOTE | 2018-10-11 08:51 | NUR ---
PT WENT INTO AFIB WHILE USING THE RESTROOM. HEARTRATE IS 120. NOTIFIED DR PRINGLE'S NURSE, JOSE. MORNING MEDS GIVEN. NO NEW ORDERS AT THIS TIME.
--- NOTE | 2018-10-11 09:51 | NUR ---
NUTRITION F/U CHART REVIEWED, PT VISIT. TOLERATING AHA DIET. PT REPORTS GOOD PO INTAKE RECENT MEALS. RD FOLLOWING
--- NOTE | 2018-10-11 10:51 | NUR ---
POTASSIUM DONE INFUSING. RT IJ FLUSHED. NO COMPLAINTS OR NEEDS AT THIS TIME.
--- NOTE | 2018-10-11 11:06 | NUR ---
PT CONVERTED BACK TO SINUS RHYTHM. HEART RATE IS IN 60S. DR LUCILA GARCIA NURSE, NOTIFIED.
--- NOTE | 2018-10-11 13:02 | NUR ---
PT HAD SMALL BM AND VOIDED. DYSPNEA ON EXERTION. ASSISTED BACK TO CHAIR. O2 SAT AT 96%. HR 74. WILL CONTINUE TO MONITOR.
--- NOTE | 2018-10-11 15:00 | NUR ---
PT SITTING UP IN CHAIR RESTING QUIETLY. VSS. CURRENTLY IN SINUS RHYTHM. NO NEEDS AT THIS TIME. WILL CONTINUE TO MONITOR.
--- NOTE | 2018-10-11 17:15 | NUR ---
PT EATING DINNER. AT BEDSIDE. VSS. NO COMPLAINTS OR NEEDS. CALL LIGHT IN REACH. WILL CONTINUE TO MONITOR.
--- NOTE | 2018-10-11 19:02 | NUR ---
BEDSIDE SHIFT REPORT GIVEN BY DEPARTING RN. PT OOB IN CHAIR WATCHING TV. NO DISTRESS NOTED. AAOX4. PERRLA. DENIES PAIN. RT IJ CVL SALINE LOCKED. SAFETY MEASURES IN PLACE. CBIR.
--- NOTE | 2018-10-11 20:18 | NUR ---
ASSESSMENT COMPLETE. SEE FLOWSHEET FOR FULL DETAILS.
--- NOTE | 2018-10-11 20:52 | NUR ---
HS MEDS GIVEN WITHOUT DIFFICULTY. ASSISTED BACK IN BED FROM CHAIR.
--- NOTE | 2018-10-11 23:39 | NUR ---
REASSESSMENT COMPLETE. NO CHANGES NOTED. REPOSITIONS SELF. SAFETY MEASURES IN PLACE.
[2018-10-12] VITALS (21 sets, daily range): BP systolic 99–140; BP diastolic 50–98
--- NOTE | 2018-10-12 01:04 | NUR ---
BEDTIME SNACK GIVEN.
[2018-10-12 06:16] LABS: HEMATOCRIT 29.4 % (42.0-54.0); HEMOGLOBIN 9.9 g/dL (13.5-17.5); MCH 30.4 pg (26.0-34.0); MCHC 33.7 g/dL (31.0-37.0); MCV 90.2 fL (80.0-100.0); MEAN PLATELET VOLUME 10.3 fL (7.4-10.4); RBC 3.26 10x6/uL (4.20-6.10); RDW 13.3 % (11.5-14.5)
[2018-10-12 06:26] LABS: WBC 6.6 10x3/uL (4.8-10.8)
[2018-10-12 06:59] LABS: ALBUMIN 2.1 g/dL (3.4-5.0); ALKALINE PHOSPHATASE 109 U/L (46-116); ALT (SGPT) 28 U/L (10-68); BILIRUBIN - TOTAL 0.65 mg/dL (0.2-1.3); CALC OSMOLALITY 281 mosm/kg (275-300); CALCIUM 7.4 mg/dL (8.5-10.1); CARBON DIOXIDE 22.8 mmol/L (21.0-32.0); CHLORIDE - SERUM 109 mmol/L (98-107); CREATININE - SERUM 0.8 mg/dL (0.6-1.3); GLUCOSE 87 mg/dL (74-106); POTASSIUM - SERUM 4.1 mmol/L (3.5-5.1); PROTEIN - SERUM 5.2 g/dL (6.4-8.2); SODIUM 141 mmol/L (136-145); UREA NITROGEN 18 mg/dL (7-18); eGFR NON AFRICAN AMERICAN > 90 mL/min (90-120)
--- NOTE | 2018-10-12 15:03 | NUR ---
0986-HGEWKUTY-YTSMP AND ALERT-SITTING UP IN CHAIR-O2 AT 1.5L-DENIES PAIN AT THIS TIME 0850-AMBULATED WITH PHYSICAL THERAPY 0950 WATCHING TELEVISION 1130-DR STREETER AT BEDSIDE-ORDERS RECIVED AND NOTED 1330-DR AZAR AT [facility]-SPOKE WITH PT AND SIGNIFICANT OTHER-REGARDING SMOKING CESSATION-PT VERY POSITIVE REGARDING SAME
--- NOTE | 2018-10-12 19:58 | NUR ---
report received and assessment completed. see flowsheet for full details.
--- NOTE | 2018-10-12 21:59 | NUR ---
PT RESTING IN BED. MEDS GIVEN. VSS. WILL MONITOR
--- NOTE | 2018-10-12 22:53 | NUR ---
REASSESSMENT COMPLETED. SEE FLOWSHEET
[2018-10-13] VITALS (23 sets, daily range): BP systolic 118–154; BP diastolic 58–87
--- NOTE | 2018-10-13 04:51 | NUR ---
I/O COLLECTED. PT UP TO CHAIR. VSS. WILL CONTINUE TO MONITOR
[2018-10-13 06:37] LABS: ALBUMIN 2.4 g/dL (3.4-5.0); ALKALINE PHOSPHATASE 128 U/L (46-116); ALT (SGPT) 30 U/L (10-68); BILIRUBIN - TOTAL 0.65 mg/dL (0.2-1.3); CALC OSMOLALITY 277 mosm/kg (275-300); CALCIUM 7.8 mg/dL (8.5-10.1); CARBON DIOXIDE 20.3 mmol/L (21.0-32.0); CHLORIDE - SERUM 108 mmol/L (98-107); CREATININE - SERUM 0.8 mg/dL (0.6-1.3); GLUCOSE 81 mg/dL (74-106); POTASSIUM - SERUM 4.4 mmol/L (3.5-5.1); PROTEIN - SERUM 5.7 g/dL (6.4-8.2); SODIUM 139 mmol/L (136-145); UREA NITROGEN 14 mg/dL (7-18); eGFR NON AFRICAN AMERICAN > 90 mL/min (90-120)
[2018-10-13 07:02] LABS: HEMATOCRIT 31.5 % (42.0-54.0); HEMOGLOBIN 10.5 g/dL (13.5-17.5); MCH 30.8 pg (26.0-34.0); MCHC 33.3 g/dL (31.0-37.0); MCV 92.4 fL (80.0-100.0); RBC 3.41 10x6/uL (4.20-6.10); RDW 13.4 % (11.5-14.5); WBC 7.7 10x3/uL (4.8-10.8)
--- NOTE | 2018-10-13 18:50 | NUR ---
0715-RECIEVED PER FLOW SHEET-AWAKE AND ALERT 0930-SITTING UP IN CHAIR-SR 1050-NO CHANGES 1300-AMBULATED WITH PHYSICAL THERAPY 1630- AT BEDSIDE 1830-ASSISTED TO BED-RA-SR
--- NOTE | 2018-10-13 19:30 | NUR ---
REPORT RECEIVED, ASSESSMENT COMPLETE PER FLOW SHEET, PT AAOx4, DENIES PAIN OR NEEDS AT THIS TIME, MEDS GIVEN PER MAR, VSS WILL CONTINUE TO ASSESS
--- NOTE | 2018-10-13 21:00 | NUR ---
ORANGE ICE CREAM GIVEN PER REQUEST FROM PT, MEDS GIVEN PER MAR/ORDERS, VSS, PT AAOx4, DENIES PAIN OR OTHER NEEDS AT THIS TIME, ASSISTED UP TO BATHROOM, PT VOID x1, PT AMBULATED WITH MINIMAL ASSIST, WILL CONTINUE TO ASSESS
--- NOTE | 2018-10-13 21:00 | NUR ---
PT OOB TO BATHROOM, x1 VOID YELLOW URINE, AMBULATES BACK TO BED, HOB UP, CL WITHIN REACH, VSS
--- NOTE | 2018-10-13 23:00 | NUR ---
REASSESSMENT COMPLETE, NO ACUTE CHANGE NOTED FROM PRIOR ASSESSMENT, REPOSITIONED IN BED, VSS, WILL CONTINUE TO ASSESS
[2018-10-14] VITALS (14 sets, daily range): BP systolic 113–149; BP diastolic 52–75
--- NOTE | 2018-10-14 01:00 | NUR ---
PT SLEEPING, AWAKES TO VERBAL STIMULI, AAOx4, VSS, REPOSITIONED UP IN BED, LARGE CUP H2O GIVEN PER REQUEST, WILL CONTINUE TO ASSESS
--- NOTE | 2018-10-14 03:00 | NUR ---
REASSESSMENT COMPLETE, NO ACUTE DISTRESS, VSS, PT DENIES PAIN OR NEEDS, WILL CONT MONITORING
[2018-10-14 04:51] LABS: HEMATOCRIT 35.8 % (42.0-54.0); MCH 30.9 pg (26.0-34.0); MCHC 33.5 g/dL (31.0-37.0); MCV 92.3 fL (80.0-100.0); MEAN PLATELET VOLUME 9.9 fL (7.4-10.4); RBC 3.88 10x6/uL (4.20-6.10); RDW 13.4 % (11.5-14.5)
[2018-10-14 05:13] LABS: ALBUMIN 2.7 g/dL (3.4-5.0); ALKALINE PHOSPHATASE 144 U/L (46-116); ALT (SGPT) 35 U/L (10-68); CALC OSMOLALITY 273 mosm/kg (275-300); CALCIUM 7.9 mg/dL (8.5-10.1); CARBON DIOXIDE 24.8 mmol/L (21.0-32.0); CHLORIDE - SERUM 102 mmol/L (98-107); CREATININE - SERUM 0.8 mg/dL (0.6-1.3); GLUCOSE 89 mg/dL (74-106); POTASSIUM - SERUM 4.6 mmol/L (3.5-5.1); SODIUM 137 mmol/L (136-145); UREA NITROGEN 14 mg/dL (7-18); eGFR NON AFRICAN AMERICAN > 90 mL/min (90-120)
--- NOTE | 2018-10-14 06:00 | NUR ---
PT OOB TO BATHROOM, x1BM NOTED, PT AMBULATES WITH MINIMAL ASSIST, PT BACK TO BEDSIDE CHAIR, NO ACUTE DISTRESS NOTED, VSS, WILL CONTINUE TO ASSESS
--- NOTE | 2018-10-14 07:58 | NUR ---
0700 PT RECIEVED UP IN CHAIR ALERT AN DORIENTED ON ROOM AIR VSS DENEIS PAIN MIDSTERNAL DRESSING CDI SUBSTERNAL DRESSING CDI, RLE HARVEST SITES CDI, TEDS AND SCDS IN PLACE, NO NEEDS NOTED, WILL CONTINUE TO MONITOR
--- NOTE | 2018-10-14 09:46 | NUR ---
Pt is on a cardiac diet. Pt reports eating >/=50% of meals Pt reports he does not like Ensure or Boost Encouraged good po intake to help optimize healing RD following
[2018-10-14] MEDS ORDERED: AMIODARONE HCL200 MG PO (11:24)
[2018-10-14] MEDS ORDERED: ASPIRIN EC81 M1 PO (11:25)
[2018-10-14] MEDS ORDERED: LOPRESSOR25 MG PO (11:25)
--- NOTE | 2018-10-14 13:03 | MORECARE ---
CASE MANAGEMENT DISCHARGE SUMMARY PATIENT: PRINCE JULIAN UNIT: [id number] ADM DATE: 10/07/18 AGE: 63 : [birth year] SEX: M ROOM/BED: [facility] AUTHOR: LATRELL,DOC PHYSICIAN: REFERRING PHYSICIAN: JODEE PRINGLE MD DATE OF SERVICE: 10/14/18 Discharge Plan Patient Name: PRINCE JULIAN Facility: [facility]:[place] : 1955 Planned Disposition: Home Anticipated Discharge Date: Discharge Date: Expected LOS: Initial Reviewer: [email or web address] Initial Review Date: 10/07/2018 Generated: 10/14/18 2:03 pm Comments DCP- Discharge Planning Updated by [email or web address]: Gely Marley on 10/08/18 11:[address] Patient Name: PRINCE JULIAN Admission Status: Elective Accout number: [id number] Admission Date: 10-07-2018 : 1955 Admission Diagnosis: Attending: JODEE PRINGLE Current LOS: 1 Anticipated DC Date: Planned Disposition: Home Primary Insurance: MEDICARE A & B Discharge Planning Comments: CM met with patient and spouse at bedside after obtaining verbal consent. Patient states he plans on returning home after discharge with his . Patient states he will have family transport him home via private vehicle. Patient denies any discharge needs at this time. CM will continue to follow and assist as needed for discharge planning / needs. Journeyman Sheet Metal Worker: Gely Marley DCPIA - Discharge Planning Initial Assessment Updated by [email or web address]: Gely Marley on 10/08/18 12:58 pm * Is the patient Alert and Oriented? Yes * How many steps to enter\exit or inside your home? * PCP [facility] * Pharmacy [facility] * Preadmission Environment Home with Family * ADLs Independent * Equipment None * List name and contact numbers for known caregivers / representatives who currently or will assist patient after discharge: SHAW JULIAN - - [phone] * Verbal permission to speak to the caregivers and representatives has been obtained from the patient. Yes * Community resources currently utilized None * Additional services required to return to the preadmission environment? No * Can the patient safely return to the preadmission environment? Yes * Has this patient been hospitalized within the prior 30 days at any hospital? No External Providers External Provider: [facility] Patient[place] Next Contact Date: Service Request Date: Service Type: Resolution: Reviewer: Comments: Last DP export: 10/08/18 11:03 am Patient Name: PRINCE JULIAN Page [id number] at 1303 All edits/amendments must be made on the electronic document DICTATION DATE: 10/14/18 1303 ENVELOPE FOLDER: GURVINDER 10/14/18 1303 RPT#: [id number] DC DATE: STATUS: ADM IN [facility] [address] [place] [address] END OF REPORT
--- NOTE | 2018-10-14 13:28 | NUR ---
0900 TOOK AM MEDS AND ATE 75% BREAKFAST 1000 AMULATED WITH PT 1100 ATE 75% LUNCH 1315 REVIEWED DC MEDS AND INSTRUCTIONS WITH PT AND , BOTH DENY ANY QUESTIONS, AWARE OF ALL FOLLOW UPS, AWIAITNG NEBULIZER FROM CASE MANAGEMENT
--- NOTE | 2018-10-14 14:14 | NUR ---
PIV REMOVED PT AND DENY QUESTIONS, PER CASE MANAGEMENT NEBULIZER TO BE DELIVERED TO HOUSE, ASSISTED TO CAR
--- NOTE | 2018-10-14 18:49 | MORECARE ---
CASE MANAGEMENT DISCHARGE SUMMARY PATIENT: PRINCE JULIAN UNIT: [id number] ADM DATE: 10/07/18 AGE: 63 : 51 SEX: M [facility] AUTHOR: LEANDRO SAMS PHYSICIAN: REFERRING PHYSICIAN: JODEE PRINGLE MD DATE OF SERVICE: 10/14/18 Discharge Plan Patient Name: PRINCE JULIAN Facility: [facility]:[place] : 1955 Planned Disposition: Home Anticipated Discharge Date: Discharge Date: 10/14/2018 Expected LOS: Initial Reviewer: [email or web address] Initial Review Date: 10/07/2018 Generated: 10/14/18 7:49 pm Comments DCP- Discharge Planning Updated by [email or web address]: Gely Marley on 10/14/18 5:[address] Patient Name: PRINCE JULIAN Encounter No: [id number] : 1955 Primary Insurance: MEDICARE A & B Anticipated DC Date: Planned Disposition: Home External Planned Provider: : NEBULIZER ORDER PLACED WITH [facility] [phone]. [facility] STATED THEY WOULD DELIVER TO PATIENTS HOME. AND [employer] WOULD DELIVER [facility]. DCP follow-up note: Patient and family in agreement with discharge plan. No changes to plan. Case management will follow and assist as needed. D/C IMM EXPLAINED AND SERVED @ 1230 Gely Marley DCP- Discharge Planning Updated by [email or web address]: Gely Marley on 10/08/18 11:[address] Patient Name: PRINCE JULIAN Admission Status: Elective Accout number: [id number] Admission Date: 10-07-2018 : 1955 Admission Diagnosis: Attending: JODEE PRINGLE Current LOS: 1 Anticipated DC Date: Planned Disposition: Home Primary Insurance: MEDICARE A & B Discharge Planning Comments: CM met with patient and spouse at bedside after obtaining verbal consent. Patient states he plans on returning home after discharge with his . Patient states he will have family transport him home via private vehicle. Patient denies any discharge needs at this time. CM will continue to follow and assist as needed for discharge planning / needs. Creative Producer: Gely Marley DCPIA - Discharge Planning Initial Assessment Updated by [email or web address]: Gely Marley on 10/08/18 12:58 pm * Is the patient Alert and Oriented? Yes * How many steps to enter\exit or inside your home? * PCP [facility] * Pharmacy [facility] * Preadmission Environment Home with Family * ADLs Independent * Equipment None * List name and contact numbers for known caregivers / representatives who currently or will assist patient after discharge: SHAW JULIAN - - [phone] * Verbal permission to speak to the caregivers and representatives has been obtained from the patient. Yes * Community resources currently utilized None * Additional services required to return to the preadmission environment? No * Can the patient safely return to the preadmission environment? Yes * Has this patient been hospitalized within the prior 30 days at any hospital? No Coverage Notice Reviewer: [id number] - Gely Marley Notice Issued Date-Time: 10/14/2018 12:30 Notice Type: IM Discharge Notice Notice Delivered To: Patient Relationship to Patient: Self Metal Off Bearer Name: Delivery Method: HAND - Hand Delivered Gabriela Days: Prior Verbal Notification: Recipient Understood Notice: Yes Recipient Signature: Yes Med Rec Note Co-signed by Attending: Coverage Notice Comment: Last DP export: 10/14/18 12:03 p Patient Name: PRINCE JULIAN Page [id number] at 1849 All edits/amendments must be made on the electronic document DICTATION DATE: 10/14/181848 POWER ENGINEER: GURVINDER 10/14/181848 RPT#: [id number] DC DATE:10/14/18 STATUS: DIS IN [id number] [place] [address] END OF REPORT
--- NOTE | 2018-10-14 18:56 | MORECARE ---
CASE MANAGEMENT DISCHARGE SUMMARY PATIENT: PRINCE JULIAN UNIT: [id number] ADM DATE: 10/07/18 AGE: 63 : 51 SEX: M [facility] AUTHOR: LEANDRO SAMS PHYSICIAN: REFERRING PHYSICIAN: JODEE PRINGLE MD DATE OF SERVICE: 10/14/18 Discharge Plan Patient Name: PRINCE JULIAN Facility: [facility]:[place] : 1955 Planned Disposition: Home Anticipated Discharge Date: Discharge Date: 10/14/2018 Expected LOS: Initial Reviewer: [email or web address] Initial Review Date: 10/07/2018 Generated: 10/14/18 7:56 pm Comments DCP- Discharge Planning Updated by [email or web address]: Gely Marley on 10/14/18 5:[address] Patient Name: PRINCE JULIAN Encounter No: [id number] : 1955 Primary Insurance: MEDICARE A & B Anticipated DC Date: Planned Disposition: Home External Planned Provider: : NEBULIZER ORDER PLACED WITH [facility] [phone]. [facility] STATED THEY WOULD DELIVER TO PATIENTS HOME. AND [employer] WOULD DELIVER [place]. DCP follow-up note: Patient and family in agreement with discharge plan. No changes to plan. Case management will follow and assist as needed. D/C IMM EXPLAINED AND SERVED @ 1230 Gely Marley DCP- Discharge Planning Updated by [email or web address]: Gely Marley on 10/08/18 11:[address] Patient Name: PRINCE JULIAN Admission Status: Elective Accout number: [id number] Admission Date: 10-07-2018 : 1955 Admission Diagnosis: Attending: JODEE PRINGLE Current LOS: 1 Anticipated DC Date: Planned Disposition: Home Primary Insurance: MEDICARE A & B Discharge Planning Comments: CM met with patient and spouse at bedside after obtaining verbal consent. Patient states he plans on returning home after discharge with his . Patient states he will have family transport him home via private vehicle. Patient denies any discharge needs at this time. CM will continue to follow and assist as needed for discharge planning / needs. Travel Rn Or: Gely Marley DCPIA - Discharge Planning Initial Assessment Updated by [email or web address]: Gely Marley on 10/08/18 12:58 pm * Is the patient Alert and Oriented? Yes * How many steps to enter\exit or inside your home? * [facility]CP [facility] * Pharmacy [facility] * Preadmission Environment Home with Family * ADLs Independent * Equipment None * List name and contact numbers for known caregivers / representatives who currently or will assist patient after discharge: SHAW JULIAN - - [phone] * Verbal permission to speak to the caregivers and representatives has been obtained from the patient. Yes * Community resources currently utilized None * Additional services required to return to the preadmission environment? No * Can the patient safely return to the preadmission environment? Yes * Has this patient been hospitalized within the prior 30 days at any hospital? No Coverage Notice Reviewer: [id number] - Gely Marley Notice Issued Date-Time: 10/14/2018 12:30 Notice Type: IM Discharge Notice Notice Delivered To: Patient Relationship to Patient: Self Open Developer Operator Name: Delivery Method: HAND - Hand Delivered Gabriela Days: Prior Verbal Notification: Recipient Understood Notice: Yes Recipient Signature: Yes Med Rec Note Co-signed by Attending: Coverage Notice Comment: Last DP export: 10/14/18 5:49 p Patient Name: PRINCE JULIAN Page [id number] at 1856 All edits/amendments must be made on the electronic document DICTATION DATE: 10/14/181855 PEPPER CUTTER: GURVINDER 10/14/181855 RPT#: [id number] DC DATE:10/14/18 STATUS: DIS IN [id number] [place] [address] END OF REPORT
== END 2018-10-14 14:15 | disposition home health service (06) | DRG 236 ==
LOC: D.SDCHOLD 10-03 08:30 → D.CVICU 10-07 05:00 → D.SDCHOLD 10-07 07:30 → D.CVICU 10-07 08:55
PROVIDERS: Internal Medicine Cardiovascular Disease; ADMIT Thoracic Surgery (Cardiothoracic Vascular Surgery); ATTEND Thoracic Surgery (Cardiothoracic Vascular Surgery)
PROC: 021209W Bypass Coronary Artery, Three Arteries from Aorta with Autologous Venous Tissue, Open Approach (ICD-10-PCS; 2018-10-07)
PROC: 06BP4ZZ Excision of Right Saphenous Vein, Percutaneous Endoscopic Approach (ICD-10-PCS; 2018-10-07)
PROC: B24BZZ4 Ultrasonography of Heart with Aorta, Transesophageal (ICD-10-PCS; 2018-10-07)
PROC: 5A1221Z Performance of Cardiac Output, Continuous (ICD-10-PCS; 2018-10-07)
PROC: 02100Z9 Bypass Coronary Artery, One Artery from Left Internal Mammary, Open Approach (ICD-10-PCS; principal; 2018-10-07 07:30)
DX: I25.110 Atherosclerotic heart disease of native coronary artery with unstable angina pectoris (principal); J98.11 Atelectasis; D62 Acute posthemorrhagic anemia; J90 Pleural effusion, not elsewhere classified; I10 Essential (primary) hypertension; K21.9 Gastro-esophageal reflux disease without esophagitis; J43.9 Emphysema, unspecified; F17.200 Nicotine dependence, unspecified, uncomplicated; I48.0 Paroxysmal atrial fibrillation; R53.81 Other malaise; E87.6 Hypokalemia

== ENCOUNTER → 2018-10-15 09:10 | Outpatient (CLI) | payer MEDICARE, OTHER ==
[~2018-10-15 09:10] MED LIST changes: +AMIODARONE HCL200 MG PO; +ASPIRIN EC81 M1 PO; +LOPRESSOR25 MG PO
== END | disposition home or self-care (01) ==
LOC: D.RAD 09:10
PROVIDERS: ATTEND Internal Medicine Cardiovascular Disease
DX: J90 Pleural effusion, not elsewhere classified (principal)

== ENCOUNTER → 2019-02-27 10:22 | Outpatient (CLI) | payer MEDICARE, OTHER | END | disposition home or self-care (01) | LOC: D.RT 10:22 | PROVIDERS: ATTEND Internal Medicine Pulmonary Disease | DX: R06.09 Other forms of dyspnea (principal) ==

== ENCOUNTER → 2020-02-04 12:09 | Outpatient (CLI) | payer MEDICARE, OTHER | END | disposition home or self-care (01) | LOC: D.LAB 12:09 → D.RT 13:00 | PROVIDERS: ATTEND Internal Medicine Pulmonary Disease | DX: J44.9 Chronic obstructive pulmonary disease, unspecified (principal); R93.89 Abnormal findings on diagnostic imaging of other specified body structures ==

== ENCOUNTER → 2020-10-27 10:05 | Outpatient (CLI) | payer MEDICARE, OTHER | END | disposition home or self-care (01) | LOC: D.HCCECHO 10:05 | PROVIDERS: ATTEND Internal Medicine Cardiovascular Disease | DX: I25.10 Atherosclerotic heart disease of native coronary artery without angina pectoris (principal) ==